=== PATIENT | male | born 1985 | race African-American/Black ===

== ENCOUNTER 2023-05-29 11:06 | Observation (INO) | payer BC, OTHER ==
[2023-05-29 11:32] LABS: #Basophils 0.1 thou/uL (0.0-0.2); #Eosinphils 0.3 thou/uL (0.0-0.7); #Monocytes 0.6 thou/uL (0.11-0.59); #Neutrophils 4.6 thou/uL (1.40-6.50); %Basophils 0.9 % (0.0-1.0); %Eosinophils 3.4 % (0.0-10.0); %Lymphocytes 40.5 % (21.0-51.0); %Monocytes 6.4 % (0.0-10.0); %Neutrophils 48.4 % (42.0-75.0); Hematocrit 45.8 % (42.0-52.0); Hemoglobin 15.6 g/dL (14.0-18.0); Mean Corpuscular HGB CONC 34.1 g/dL (32.0-36.0); Mean Corpuscular Hemoglobin 30.6 pg (27.0-31.0); Mean Platelet Volume 9.9 fL (7.4-10.4); Platelet Count 339 10x3/uL (130-400); RBC Distribution Width 12.8 % (11.5-14.5); Red Blood Cell (RBC) Count 5.09 mill/uL (4.70-6.10); White Blood Cell (WBC) Count 9.6 10x3/uL (4.8-10.8)
[2023-05-29 11:56] LABS: ALT (SGPT) 68 U/L (8-55); AST (SGOT) 25 U/L (5-34); Albumin 4.2 g/dL (3.5-5.0); Alkaline Phosphatase 97 U/L (40-110); Anion Gap 10 mmol/L (10-20); BUN (Urea Nitrogen) 10 mg/dL (8.9-20.6); Bilirubin, Total 0.6 mg/dL (0.2-1.2); Calc. Creatinine Clearance 0 mL/min (70-130); Calcium 8.9 mg/dL (7.8-10.44); Carbon Dioxide 25 mmol/L (22-29); Chloride 108 mmol/L (98-107); Estimated GFR 118; Glucose 116 mg/dL (70-105); Potassium 3.9 mmol/L (3.5-5.1); Protein, Total 7.2 g/dL (6.0-8.3); Sodium 139 mmol/L (136-145)
[2023-05-29 12:00] LABS: Troponin I 0.021 ng/mL (< 0.028)
[2023-05-29] MEDS ORDERED: dilTIAZem 25 MG/5 ML VIAL ONE (13:48)
[2023-05-29] MEDS ORDERED: Digoxin 0.125 MG TAB ONE ×2 (13:48→14:04)
[2023-05-29] MEDS ORDERED: Ondansetron PF 4 MG/2 ML Vial IVP PRN (14:08)
[2023-05-29] MEDS ORDERED: Acetaminophen 325 MG TAB PO PRN (14:08)
[2023-05-29] MEDS ORDERED: Electrolyte Replacement Protocol 1 EACH FS SCH (14:30)
[2023-05-29] MEDS ORDERED: dilTIAZem 125 MG in Sodium Chloride 0.9% 100 ML IVPB SCH (15:00)
[2023-05-29] MEDS ORDERED: Enoxaparin 100 MG (1 mL) SYRINGE ONE (15:13)
[2023-05-29] MEDS ORDERED: Enoxaparin 60 MG (0.6 mL) SYRINGE ONE (15:13)
[2023-05-29 15:22] VITALS: BMI 44.5
[2023-05-29 15:51] LABS: Magnesium 1.8 mg/dL (1.6-2.6)
[2023-05-29 15:56] LABS: Troponin I Less than 0.010 ng/mL (< 0.028)
[2023-05-29] MEDS ORDERED: Potassium Chloride 20 MEQ TAB ONE (18:05)
[2023-05-29] MEDS ORDERED: Magnesium 2 GM/50 ML BAG (IN WATER) ONE (18:05)
[2023-05-29] MEDS: Magnesium 2 GM/50 ML(in water) 2 GM in Premix 1 BAG IVPB SCH (18:27)
[2023-05-29] MEDS: Potassium Chloride 20 MEQ TAB PO SCH (18:27)
[2023-05-29 20:22] LABS: Troponin I 0.017 ng/mL (< 0.028)
[2023-05-29] MEDS ORDERED: Enoxaparin 80 MG (0.8 mL) SYRINGE SC SCH (21:00)
[2023-05-29] MEDS: Flecainide 50 MG TAB PO SCH (21:52)
[2023-05-30 04:05] LABS: #Basophils 0.1 thou/uL (0.0-0.2); #Eosinphils 0.4 thou/uL (0.0-0.7); #Monocytes 0.7 thou/uL (0.11-0.59); #Neutrophils 3.8 thou/uL (1.40-6.50); %Basophils 1.2 % (0.0-1.0); %Eosinophils 3.8 % (0.0-10.0); %Neutrophils 40.6 % (42.0-75.0); Hematocrit 42.3 % (42.0-52.0); Hemoglobin 14.4 g/dL (14.0-18.0); Mean Corpuscular Hemoglobin 30.8 pg (27.0-31.0); Mean Corpuscular Volume 90.4 fl (78.0-98.0); Mean Platelet Volume 9.8 fL (7.4-10.4); Platelet Count 302 10x3/uL (130-400); RBC Distribution Width 13.2 % (11.5-14.5); Red Blood Cell (RBC) Count 4.68 mill/uL (4.70-6.10); White Blood Cell (WBC) Count 9.2 10x3/uL (4.8-10.8)
[2023-05-30 04:29] LABS: Phosphorus 3.9 mg/dL (2.3-4.7)
[2023-05-30 04:30] LABS: ALT (SGPT) 57 U/L (8-55); AST (SGOT) 18 U/L (5-34); Albumin 3.7 g/dL (3.5-5.0); Alkaline Phosphatase 85 U/L (40-110); Anion Gap 10 mmol/L (10-20); BUN (Urea Nitrogen) 13 mg/dL (8.9-20.6); Bilirubin, Direct 0.2 mg/dL (0.1-0.3); Bilirubin, Total 0.4 mg/dL (0.2-1.2); Calc. Creatinine Clearance 262 mL/min (70-130); Calcium 8.5 mg/dL (7.8-10.44); Carbon Dioxide 30 mmol/L (22-29); Cardiac Risk 4.8 (Less than 4.5); Chloride 104 mmol/L (98-107); Cholesterol 188 mg/dl (< 200 Desired); Estimated GFR 117; Glucose 118 mg/dL (70-105); HDL Cholesterol 39 mg/dL (>60 Neg Risk); LDL Cholesterol, Calculated 124 mg/dL; Magnesium 1.9 mg/dL (1.6-2.6); Potassium 3.8 mmol/L (3.5-5.1); Protein, Total 6.4 g/dL (6.0-8.3); Sodium 140 mmol/L (136-145); Triglycerides 126 mg/dL (Less than 150)
[2023-05-30] MEDS ORDERED: Enoxaparin 60 MG (0.6 mL) SYRINGE ONE (07:24)
[2023-05-30] MEDS ORDERED: Enoxaparin 100 MG (1 mL) SYRINGE ONE (07:24)
[2023-05-30] MEDS: Enoxaparin 100 MG (1 mL) SYRINGE SC SCH (07:29)
[2023-05-30] MEDS: Enoxaparin 60 MG (0.6 mL) SYRINGE SC SCH (07:30)
[2023-05-30] MEDS ORDERED: Magnesium 2 GM/50 ML BAG (IN WATER) ONE (08:31)
[2023-05-30] MEDS: Magnesium 2 GM/50 ML(in water) 2 GM in Premix 1 BAG IVPB SCH (09:15)
[2023-05-30] MEDS ORDERED: Amiodarone 200 MG TAB ONE (15:08)
[2023-05-30] MEDS: Amiodarone 200 MG TAB PO SCH ×2 (15:18→20:32)
[2023-05-30] MEDS: Carvedilol 3.125 MG TAB PO SCH (19:30)
[2023-05-30] MEDS: Atorvastatin Calcium 40 MG TAB PO SCH (20:32)
[2023-05-30] MEDS: Apixaban 5 MG TAB PO SCH (20:32)
[2023-05-31 06:12] LABS: #Basophils 0.1 thou/uL (0.0-0.2); #Eosinphils 0.2 thou/uL (0.0-0.7); #Monocytes 0.7 thou/uL (0.11-0.59); #Neutrophils 4.6 thou/uL (1.40-6.50); %Basophils 1.1 % (0.0-1.0); %Eosinophils 2.3 % (0.0-10.0); %Lymphocytes 39.3 % (21.0-51.0); %Monocytes 7.3 % (0.0-10.0); %Neutrophils 49.6 % (42.0-75.0); Hematocrit 42.2 % (42.0-52.0); Hemoglobin 14.3 g/dL (14.0-18.0); Mean Corpuscular HGB CONC 33.9 g/dL (32.0-36.0); Mean Corpuscular Volume 91.3 fl (78.0-98.0); Platelet Count 310 10x3/uL (130-400); RBC Distribution Width 12.9 % (11.5-14.5); Red Blood Cell (RBC) Count 4.62 mill/uL (4.70-6.10); White Blood Cell (WBC) Count 9.3 10x3/uL (4.8-10.8)
[2023-05-31 06:29] LABS: Anion Gap 11 mmol/L (10-20); BUN (Urea Nitrogen) 11 mg/dL (8.9-20.6); Calc. Creatinine Clearance 266 mL/min (70-130); Calcium 9.2 mg/dL (7.8-10.44); Carbon Dioxide 31 mmol/L (22-29); Chloride 102 mmol/L (98-107); Estimated GFR 117; Glucose 105 mg/dL (70-105); Magnesium 2.1 mg/dL (1.6-2.6); Potassium 3.8 mmol/L (3.5-5.1); Sodium 140 mmol/L (136-145)
[2023-05-31] MEDS ORDERED: traZODone HCl 50 MG TAB PO PRN ×3 (08:24→09:40)
[2023-05-31] MEDS: risperiDONE 0.25 MG TAB PO SCH (08:39)
[2023-05-31] MEDS: Divalproex Sodium DR 500 MG TAB PO SCH (08:40)
[2023-05-31] MEDS ORDERED: Non-Formulary Item 1 EACH (Risperidone [Risperdal] 0.5 MG Tab) PO SCH (09:00)
[2023-05-31] MEDS ORDERED: Aspirin 325 mg Enteric Coated Tablet PO SCH (09:00)
[2023-05-31 11:46] VITALS: BP 147/95; TEMP 97.6
[2023-05-31] MEDS ORDERED: risperiDONE 0.25 MG TAB PO SCH (21:00)
[2023-05-31] MEDS ORDERED: Divalproex Sodium DR 500 MG TAB PO SCH (21:00)
== END 2023-05-31 12:29 | disposition home or self-care (01) ==
LOC: ERS 11:06 → SUATTDRO 11:06 → ERHOLD 14:08 → 2SW 05-30 16:54
PROVIDERS: ADMIT Family Medicine; ATTEND Family Medicine
PROC: B246ZZZ Ultrasonography of Right and Left Heart (ICD-10-PCS; principal; 2023-05-30)
DX: I48.91 Unspecified atrial fibrillation (principal); I42.9 Cardiomyopathy, unspecified; I08.1 Rheumatic disorders of both mitral and tricuspid valves; I11.0 Hypertensive heart disease with heart failure; I50.20 Unspecified systolic (congestive) heart failure; G47.33 Obstructive sleep apnea (adult) (pediatric); F32.A Depression, unspecified; F43.10 Post-traumatic stress disorder, unspecified; E66.9 Obesity, unspecified; Z68.41 Body mass index [BMI] 40.0-44.9, adult; Z79.01 Long term (current) use of anticoagulants
CPT/HCPCS: 36415; 71045; 80048; 80053; 80061; 80076; 83036; 83735; 84100; 84443; 84484; 85025; 85379; 86850; 86900; 86901; 93005; 93010; 93306; 96372; 96374; 96375; 96376; G0378; J1650; J3475